=== PATIENT | female | born 1935 | race Caucasian/White ===

== ENCOUNTER 2023-07-25 11:06 | Inpatient (IN) | payer MEDICARE, BC ==
[2023-07-25 11:12] LABS: Glucose,Whole Blood 184 mg/dL (70-110)
--- NOTE | 2023-07-25 11:19 | ED ---
General Adult HPI - General Chief complaint: Neuro Symptoms/Deficit Stated complaint: Stroke Time Seen by Provider: 07/25/23 11:11 Source: patient, RN notes reviewed Mode of arrival: EMS Limitations: no limitations - History of Present Illness Initial comments: Patient is a pleasant 87-year-old female presenting to the emergency department with concern for speech problems. Patient woke at 5 AM and felt everything was normal. Patient noticed symptoms around 6:30 AM. Daughter called her and was concerned and recommended she come to the hospital. Patient admits to having some problems with speech and some drooling on the right side as well as the right side of her face feeling a little bit funny. No history of similar symptoms previously. Last known well 6:30 AM. - Related Data Allergies Allergy/AdvReac Type Severity Reaction Status Date / Time lomefloxacin [From [facility]] Allergy Anaphylaxis Verified 07/25/23 11:22 Penicillins AdvReac Unknown Verified 07/25/23 11:21 Childhood Sulfa (Sulfonamide AdvReac Unknown Verified 07/25/23 11:22 Antibiotics) Childhood Review of Systems ROS Statement: Those systems with pertinent positive or pertinent negative responses have been documented in the HPI. ROS Other: All systems not noted in ROS Statement are negative. Constitutional: Denies: fever Eyes: Denies: eye pain ENT: Denies: ear pain Respiratory: Denies: cough, dyspnea Cardiovascular: Denies: chest pain Endocrine: Denies: fatigue Gastrointestinal: Denies: abdominal pain Neurological: Reports: as per HPI. Denies: headache General Exam Limitations: no limitations General appearance: alert, in no apparent distress Head exam: Present: normocephalic Eye exam: Present: normal appearance, PERRL, EOMI ENT exam: Present: normal exam Neck exam: Present: normal inspection Respiratory exam: Present: normal lung sounds bilaterally Cardiovascular Exam: Present: irregular rhythm GI/Abdominal exam: Present: soft. Absent: tenderness Extremities exam: Present: normal inspection Neurological exam: Present: alert Expanded Neurological exam: Present: protecting the airway, other (Mild slurred speech) Patient oriented to: Present: person, place. Absent: time Cranial nerves: EOM's Intact: Normal, Facial Palsy with Forehead Movement: Abn ormal Right (Right facial droop) Sensory exam: Upper Extremity Light Touch: Normal, Lower Extremity Light Touch: Normal Motor strength exam: RUE: 5, LUE: 5, RLE: 5, LLE: 5 Eye Response: (4) open spontaneously Motor Response: (6) obeys commands Verbal Response: (4) confused conversation Psychiatric exam: Present: normal affect, normal mood Skin exam: Present: normal color Course Vital Signs 07/25/23 07/25/23 11:08 12:41 Temperature 97.8 F Pulse Rate 98 77 Respiratory 18 18 Rate Blood Pressure 135/77 128/76 O2 Sat by Pulse 95 97 Oximetry EKG Findings - EKG Results: EKG: interpreted by [facility]EN[facility] (Nonspecific ST-T), normal axis, normal QRS EKG shows: atrial fibrillation Medical Decision Making - Medical Decision Making Last known well greater than 4.5 hours, therefore patient is not a candidate for TNK or tPA. Risks felt to outweigh the benefits. Was pt. sent in by a medical professional or institution (Dr. PA, JETTING MACHINE OPERATOR, urgent care, hospital, or retirement...) When possible be specific @ -No Did you speak to anyone other than the patient for history (EMS, parent, family, police, friend...)? What history was obtained from this source @ -EMS helps provide history including transportation and concerns of family Did you review nursing and triage notes (agree or disagree)? Why? @ -I reviewed and agree with nursing and triage notes Were old charts reviewed (outside hosp., previous admission, EMS record, old EKG, old radiological studies, urgent care reports/EKG's, retirement records)? Report findings @ -No old charts were reviewed Differential Diagnosis (chest pain, altered mental status, abdominal pain women, abdominal pain men, vaginal bleeding, weakness, fever, dyspnea, syncope, hea dache, dizziness, GI bleed, back pain, seizure, CVA, palpatations, mental health, musculoskeletal)? @ -MDM differential EKG interpreted by me (3pts min.). @ -As above X-rays interpreted by me (1pt min.). @ -Chest x-ray shows some mild interstitial change CT interpreted by me (1pt min.). @ -CT brain does not reveal acute intracranial abnormality U/S interpreted by me (1pt. min.). @ -None done What testing was considered but not performed or refused? (CT, X-rays, U/S, labs)? Why? @ -None What meds were considered but not given or refused? Why? @ -None Did you discuss the management of the patient with other professionals (professionals i.e. , PA, JETTING MACHINE OPERATOR, lab, RT, psych nurse, criminal justice social worker, shingle bolt cutter, teacher, aerospace engineer officer armament, medical case manager)? Give summary @ -Case was discussed with Dr. Chao admit covering Dr. Stephens Was smoking cessation discussed for >3mins.? @ -No Was critical care preformed (if so, how long)? @ -31 minutes critical care Were there social determinants of health that impacted care today? How? (Homelessness, low income, unemployed, alcoholism, drug addiction, transportation, low edu. Level, literacy, decrease access to med. care, usp, rehab)? @ -No Was there de-escalation of care discussed even if they declined (Discuss DNR or withdrawal of care, Hospice)? DNR status @ -No What co-morbidities impacted this encounter? (DM, HTN, Smoking, COPD, CAD, Ca ncer, CVA, ARF, Chemo, Hep., AIDS, mental health diagnosis, sleep apnea, morbid obesity)? @ -None Was patient admitted / discharged? Hospital course, mention meds given and route, prescriptions, significant lab abnormalities, going to OR and other pertinent info. @ -Patient reevaluated and unchanged. Patient remains in A-fib. Patient and family are updated on results and plan. Patient will be admitted with cardiac and neuro consults. Admission orders written. Undiagnosed new problem with uncertain prognosis? @ -No Drug Therapy requiring intensive monitoring for toxicity (Heparin, Nitro, Insulin, Cardizem)? @ -Patient will be started on heparin drip for A-fib Were any procedures done? @ -No Diagnosis/symptom? @ -CVA, new onset A-fib Acute, or Chronic, or Acute on Chronic? @ -Acute, acute Uncomplicated (without systemic symptoms) or Complicated (systemic symptoms)? @ -Complicated with atrial fibrillation Side effects of treatment? @ -No Exacerbation, Progression, or Severe Exacerbation? @ -No Poses a threat to life or bodily function? How? (Chest pain, [place], [place], pneumonia, PE, COPD, DKA, ARF, appy, cholecystitis, CVA, Diverticulitis, Homicidal, Suicidal, threat to staff... and all critical care pts) @ -No - Lab Data Result diagrams: 07/25/23 11:20 07/25/23 11:20 Lab Results 07/25/23 07/25/23 07/25/23 Range/Units 11:09 11:20 11:20 WBC 7.1 (3.8-10.6) k/uL RBC 3.97 (3.80-5.40) m/uL Hgb 12.4 (11.4-16.0) gm/dL Hct 37.1 (34.0-46.0) % MCV 93.4 (80.0-100.0) fL MCH 31.3 (25.0-35.0) pg MCHC 33.5 (31.0-37.0) g/dL RDW 13.0 (11.5-15.5) % Plt Count 202 (150-450) k/uL MPV 7.8 Neutrophils % 66 % Lymphocytes % 27 % Monocytes % 4 % Eosinophils % 1 % Basophils % 1 % Neutrophils # 4.6 (1.3-7.7) k/uL Lymphocytes # 1.9 (1.0-4.8) k/uL Monocytes # 0.3 (0-1.0) k/uL Eosinophils # 0.1 (0-0.7) k/uL Basophils # 0.0 (0-0.2) k/uL PT 11.1 (10.0-12.5) sec INR 1.0 (<1.2) APTT 22.7 (22.0-30.0) sec Sodium (137-145) mmol/L Potassium (3.5-5.1) mmol/L Chloride (98-107) mmol/L Carbon Dioxide (22-30) mmol/L Anion Gap mmol/L BUN (7-17) mg/dL Creatinine (0.52-1.04) mg/dL Est GFR (CKD-EPI)AfAm (>60 ml/min/1.73 sqM) Est GFR (CKD-EPI)NonAf (>60 ml/min/1.73 sqM) Glucose (74-99) mg/dL POC Glucose (mg/dL) 184 H (70-110) mg/dL POC Glu Public Information Officer ID Noris Carey Calcium (8.4-10.2) mg/dL Total Bilirubin (0.2-1.3) mg/dL AST (14-36) U/L ALT (4-34) U/L Alkaline Phosphatase (38-126) U/L Creatine Kinase (30-135) U/L Total Protein (6.3-8.2) g/dL Albumin (3.5-5.0) g/dL 07/25/23 Range/Units 11:20 WBC (3.8-10.6) k/uL RBC (3.80-5.40) m/uL Hgb (11.4-16.0) gm/dL Hct (34.0-46.0) % MCV (80.0-100.0) fL MCH (25.0-35.0) pg MCHC (31.0-37.0) g/dL RDW (11.5-15.5) % Plt Count (150-450) k/uL MPV Neutrophils % % Lymphocytes % % Monocytes % % Eosinophils % % Basophils % % Neutrophils # (1.3-7.7) k/uL Lymphocytes # (1.0-4.8) k/uL Monocytes # (0-1.0) k/uL Eosinophils # (0-0.7) k/uL Basophils # (0-0.2) k/uL PT (10.0-12.5) sec INR (<1.2) APTT (22.0-30.0) sec Sodium 141 (137-145) mmol/L Potassium 4.3 (3.5-5.1) mmol/L Chloride 111 H (98-107) mmol/L Carbon Dioxide 16 L (22-30) mmol/L Anion Gap 14 mmol/L BUN 27 H (7-17) mg/dL Creatinine 0.97 (0.52-1.04) mg/dL Est GFR (CKD-EPI)AfAm 61 (>60 ml/min/1.73 sqM) Est GFR (CKD-EPI)NonAf 53 (>60 ml/min/1.73 sqM) Glucose 192 H (74-99) mg/dL POC Glucose (mg/dL) (70-110) mg/dL POC Glu Public Information Officer ID Calcium 10.4 H (8.4-10.2) mg/dL Total Bilirubin 1.5 H (0.2-1.3) mg/dL AST 24 (14-36) U/L ALT 17 (4-34) U/L Alkaline Phosphatase 76 (38-126) U/L Creatine Kinase 50 (30-135) U/L Total Protein 7.6 (6.3-8.2) g/dL Albumin 4.5 (3.5-5.0) g/dL Critical Care Time Critical Care Time: Yes Disposition Clinical Impression: Cerebrovascular accident (CVA), Atrial fibrillation Disposition: ADMITTED IP TO THIS HOSP Is patient prescribed a controlled substance at d/c from ED?: No Referrals: Miri Stephens DO [Primary Care Provider] - 1-2 days Time of Disposition: 13:16
[2023-07-25 11:31] LABS: Basophils % (A) 1 %; Eosinophils # (A) 0.1 k/uL (0-0.7); Eosinophils % (A) 1 %; HCT 37.1 % (34.0-46.0); HGB 12.4 gm/dL (11.4-16.0); Lymphocytes # (A) 1.9 k/uL (1.0-4.8); Lymphocytes % (A) 27 %; MCH 31.3 pg (25.0-35.0); MCHC 33.5 g/dL (31.0-37.0); MCV 93.4 fL (80.0-100.0); Mean Platelet Volume 7.8; Monocytes # (A) 0.3 k/uL (0-1.0); Monocytes % (A) 4 %; Neutrophils # (A) 4.6 k/uL (1.3-7.7); Neutrophils % (A) 66 %; Platelet Count 202 k/uL (150-450); RBC 3.97 m/uL (3.80-5.40); WBC 7.1 k/uL (3.8-10.6)
[2023-07-25 11:41] LABS: ALT 17 U/L (4-34); AST 24 U/L (14-36); African American GFR (CKD) 61 (>60 ml/min/1.73 sqM); Albumin 4.5 g/dL (3.5-5.0); Alkaline Phosphatase 76 U/L (38-126); Anion Gap 14 mmol/L; Blood Urea Nitrogen 27 mg/dL (7-17); Calcium 10.4 mg/dL (8.4-10.2); Carbon Dioxide 16 mmol/L (22-30); Chloride 111 mmol/L (98-107); Creatine Kinase 50 U/L (30-135); Glucose 192 mg/dL (74-99); Non-African American GFR(CKD) 53 (>60 ml/min/1.73 sqM); Potassium 4.3 mmol/L (3.5-5.1); Sodium 141 mmol/L (137-145); Total Bilirubin 1.5 mg/dL (0.2-1.3); Total Protein 7.6 g/dL (6.3-8.2)
[2023-07-25] MEDS: SODIUM CHLORIDE 0.9% 1,000 ML IV STA (11:48)
[2023-07-25 11:49] LABS: Partial Thromboplastin Time 22.7 sec (22.0-30.0); Prothrombin Time 11.1 sec (10.0-12.5)
--- NOTE | 2023-07-25 12:12 | XR ---
EXAMINATION TYPE: XR chest 2V DATE OF EXAM: 07/25/2023 12:04 PM CLINICAL INDICATION:Female, 87 years old with history of altered mental status; H COMPARISON: None TECHNIQUE: XR chest 2V Frontal and lateral views of the chest. FINDINGS: Lungs/Pleura: There is no evidence of pleural effusion, focal consolidation, or pneumothorax. Pulmonary vascularity: Pulmonary vascular congestion. Heart/mediastinum: Cardiomediastinal silhouette is enlarged and stable. Musculoskeletal: No acute osseous pathology. Other findings: None IMPRESSION: Cardiomegaly and mild pulmonary vascular congestion. Correlate with BNP for congestive heart failure.
--- NOTE | 2023-07-25 12:56 | CT ---
EXAMINATION TYPE: CT brain wo con CT DLP: 1533.10 mGycm, Automated exposure control for dose reduction was used. DATE OF EXAM: 07/25/2023 12:39 PM COMPARISON: None. CLINICAL INDICATION:Female, 87 years old with history of Neuro deficit, acute, stroke suspected, Stro ke TECHNIQUE: Brain: Axial CT images of the brain were obtained with coronal and sagittal reformats created and rev iewed. Contrast used: None. Oral contrast used: None. FINDINGS: Brain: Extra-axial spaces: No abnormal extra-axial fluid collections. Ventricular system: Dilatation in proportion to cerebral atrophy. Cerebral parenchyma: Cerebral atrophy. No acute intraparenchymal hemorrhage or mass effect. The lopez -white junction is well differentiated. Scattered hypoattenuating areas are seen within the white mat ter. Cerebellum: Unremarkable. Mass effect: No evidence of midline shift. Intracranial vasculature: unremarkable Soft tissues: Normal. Calvarium/osseous structures: No depressed skull fracture. Paranasal sinuses and mastoid air cells: Mild scattered paranasal sinus disease. Visualized orbits: Orbital contents are intact. IMPRESSION: 1. No acute intracranial process. 2. Nonspecific white matter changes, likely secondary to chronic small vessel ischemic disease.
--- NOTE | 2023-07-25 13:08 | CT ---
EXAMINATION TYPE: CT angio head neck CT DLP: 1533.10 mGycm, Automated exposure control for dose reduction was used. DATE OF EXAM: 07/25/2023 1:00 PM COMPARISON: CT head same day. CLINICAL INDICATION:Female, 87 years old with history of Neuro deficit, acute, stroke suspected; PHH, Stroke TECHNIQUE: Axially acquired helical CT angiogram of the head and neck was obtained with contrast. Axi al images are supplemented with 3D reconstructions and MIP images which were post-processed at an in dependent workstation. NASCET criteria used. Contrast used:65 ml mL of Isovue 300 without and with IV Contrast, Oral contrast used: None. FINDINGS: CTA HEAD: No evidence of acute intracranial hemorrhage, mass effect, or midline shift. The ventricles, sulci, a nd cisterns are unremarkable. The visualized portions of the internal carotid arteries, middle cerebral arteries, anterior cerebral arteries, and posterior cerebral arteries are patent. Atherosclerosis of the intracranial portions o f the carotid arteries. The basilar and vertebral arteries are patent. CTA NECK: Right Carotid System: The common carotid and external carotid arteries are patent. There is less than 50% stenosis at the c arotid bifurcation secondary to calcified/noncalcified plaque. The rest of the internal carotid arter y is patent. Left Carotid System: The common carotid and external carotid arteries are patent. There is less than 25% stenosis at the c arotid bifurcation secondary to calcified/noncalcified plaque. The rest of the internal carotid arter y is patent. Vertebral arteries are patent without evidence hemodynamically significant stenosis. Dominant right v ertebral artery. Is tortuosity of the left vertebral artery which exits the neuroforamen and reenters There is a three-vessel aortic arch. The origins of the great vessels are patent. No evidence of hemo dynamically significant stenosis. Upper thorax: Pulmonary vascular congestion with small bilateral pleural effusions. IMPRESSION: 1. No evidence of dissection of the cervical internal carotid arteries or vertebral arteries. 2. No evidence of intracranial high-grade stenosis or intracranial aneurysm. 3. Atherosclerosis of the carotid bifurcations with 50% stenosis on the right and less than 25% steno sis on the left.
[2023-07-25] MEDS ORDERED: HEPARIN SODIUM 1,000 UN/ML (10ML VL) IV PRN (13:16)
[2023-07-25 13:33] LABS: Magnesium 1.4 mg/dL (1.6-2.3)
[2023-07-25] MEDS: ASPIRIN 325 MG TAB PO STA (13:37)
[2023-07-25] MEDS: HEPARIN SOD,PORK IN 0.45% NACL 25,000 UNIT in 0.45% NACL 1 250ML.BAG IV SCH (13:38)
--- NOTE | 2023-07-25 13:41 | P.HPIM ---
History of Present Illness This is a pleasant 87 years old female who came from home for right facial droop which started yesterday. Also she is complaining of her speech is slow and slurred which is improved currently but not completely resolved Patient denies headache dizziness or any other new complaints other than above. No double vision. Patient denies chest pain or dyspnea or abdominal pain. No change in urine or bowel habits. No urinary complaints No smoking alcohol or illicit drugs Patient is hemodynamically stable Labs reviewed she has unremarkable CBC, BMP other than mildly elevated BUN, liver enzymes unremarkable, INR 1.0 CT of the brain is negative for acute process CTA of the head of neck is negative for acute process like no aneurysm or dissection. Right internal carotid artery stenosis about 50% while left internal carotid artery stenosis 25% Chest x-ray showing cardiomegaly with pulmonary vascular congestion which is mild. EKG showing atrial fibrillation at a rate of [address]-T changes Review of Systems Review of systems CONSTITUTIONAL: No fever, no malaise, no fatigue. HEENT: No recent visual problems or hearing problems. Denied any sore throat. CARDIOVASCULAR: No orthopnea, PND, no palpitations, no syncope. PULMONARY: No shortness of breath, no cough, no hemoptysis. GASTROINTESTINAL: No diarrhea, no nausea, no vomiting, no abdominal pain. Normoactive bowel sounds. NEUROLOGICAL: No headaches, no weakness, no numbness. HEMATOLOGICAL: Denies any bleeding or petechiae. GENITOURINARY: Denies any burning micturition, frequency, or urgency. MUSCULOSKELETAL/RHEUMATOLOGICAL: Denies any joint pain, swelling, or any muscle pain. ENDOCRINE: Denies any polyuria or polydipsia. Medications and Allergies Allergies Allergy/AdvReac Type Severity Reaction Status Date / Time lomefloxacin [From [facility]] Allergy Anaphylaxis Verified 07/25/23 11:22 Penicillins AdvReac Unknown Verified 07/25/23 11:21 Childhood Sulfa (Sulfonamide AdvReac Unknown Verified 07/25/23 11:22 Antibiotics) Childhood Physical Exam Vitals: Vital Signs Temp Pulse Resp BP Pulse Ox 07/25/23 12:41 77 18 128/76 97 07/25/23 11:08 97.8 F 98 18 135/77 95 Intake and Output 07/24/23 07/25/23 07/25/23 22:59 06:59 14:59 Other: Weight 81 kg GENERAL: The patient is alert and oriented x3, not in any acute distress. Well developed, well nourished. HEENT: Pupils are round and equally reacting to light. EOMI. No scleral icterus. No conjunctival pallor. Normocephalic, atraumatic. No pharyngeal erythema. No thyromegaly. CARDIOVASCULAR: S1 and S2 present. No murmurs, rubs, or gallops. PULMONARY: Chest is clear to auscultation, no wheezing , no crackles. ABDOMEN: Soft, nontender, nondistended, normoactive bowel sounds. No palpable organomegaly. MUSCULOSKELETAL: No joint swelling or deformity. EXTREMITIES: No cyanosis, clubbing, or pedal edema. -NEUROLOGICAL: Cranial nerves are grossly intact other than mild left facial deviation and right facial droop. No weakness or numbness. Strength 5/5. Mentation is intact SKIN: No rashes. no petechiae. Results CBC & Chem 7: 07/25/23 11:20 07/25/23 11:20 Labs: Abnormal Lab Results - Last 24 Hours (Table) 07/25/23 07/25/23 07/25/23 Range/Units 11:09 11:20 11:20 Chloride 111 H (98-107) mmol/L Carbon Dioxide 16 L (22-30) mmol/L BUN 27 H (7-17) mg/dL Glucose 192 H (74-99) mg/dL POC Glucose (mg/dL) 184 H (70-110) mg/dL Calcium 10.4 H (8.4-10.2) mg/dL Magnesium 1.4 L (1.6-2.3) mg/dL Total Bilirubin 1.5 H (0.2-1.3) mg/dL Assessment and Plan Assessment: Acute stroke is suspected with no slurred speech and right facial droop New onset A-fib with rate controlled Right internal carotid artery stenosis 50% Obesity with BMI of 32.7 Plan: Continue with heparin drip started in the emergency room Continue with aspirin 325 mg Neurology consult Cardiology consult Also will consult vascular surgery team for her right internal carotid artery stenosis Labs and medication were reviewed.. Continue same treatment. Continue with symptomatic treatment. Resume home medication. Monitor labs and vitals. DVT and GI prophylaxis. Further recommendations as per clinical course of the patient DVT prophylaxis: Subcutaneous heparin GI Prophylaxis: Pepcid PT/OT: Pending Prognosis is guarded
[2023-07-25 13:51] LABS: T4, Free (Free Thyroxine) 1.83 ng/dL (0.78-2.19)
[2023-07-25] MEDS: SODIUM CHLORIDE 0.9% 1,000 ML IV SCH (14:04)
[2023-07-25 17:29] LABS: Glucose,Whole Blood 152 mg/dL (70-110)
[2023-07-25 21:31] LABS: Glucose,Whole Blood 149 mg/dL (70-110)
[2023-07-26] MEDS ORDERED: DEXTROSE 50% SYRINGE 50 ML IVP PRN ×2 (07:13)
[2023-07-26 07:58] LABS: Glucose,Whole Blood 97 mg/dL (70-110)
[2023-07-26] MEDS: INSULIN ASPART (NovoLOG) 100 UNIT/ML VIAL SQ SCH (07:58)
[2023-07-26 08:01] LABS: Basophils % (A) 0 %; Eosinophils # (A) 0.2 k/uL (0-0.7); Eosinophils % (A) 2 %; HCT 35.2 % (34.0-46.0); HGB 11.8 gm/dL (11.4-16.0); Lymphocytes # (A) 2.1 k/uL (1.0-4.8); Lymphocytes % (A) 24 %; MCHC 33.5 g/dL (31.0-37.0); MCV 92.7 fL (80.0-100.0); Mean Platelet Volume 7.8; Monocytes # (A) 0.3 k/uL (0-1.0); Monocytes % (A) 4 %; Neutrophils # (A) 5.9 k/uL (1.3-7.7); Neutrophils % (A) 68 %; Platelet Count 210 k/uL (150-450); WBC 8.6 k/uL (3.8-10.6)
[2023-07-26 08:09] LABS: INR 1.1 (<1.2)
[2023-07-26] MEDS: APIXABAN 5 MG TAB PO SCH (08:59)
[2023-07-26] MEDS: METOPROLOL TARTRATE 50 MG TAB PO SCH (08:59)
[2023-07-26] MEDS: PRAVASTATIN SODIUM 40 MG TAB PO SCH (08:59)
[2023-07-26] MEDS: ASPIRIN 81 MG PO SCH (08:59)
[2023-07-26] MEDS: FAMOTIDINE 20 MG/2 ML VIAL IV SCH (09:00)
[2023-07-26] MEDS ORDERED: ASPIRIN 325 MG TAB PO SCH (09:00)
[2023-07-26 09:09] VITALS: RESP 18
--- NOTE | 2023-07-26 10:13 | P.PN ---
Subjective This is a pleasant 87 years old female who came from home for right facial droop which started yesterday. Also she is complaining of her speech is slow and slurred which is improved currently but not completely resolved Patient denies headache dizziness or any other new complaints other than above. No double vision. Patient denies chest pain or dyspnea or abdominal pain. No change in urine or bowel habits. No urinary complaints No smoking alcohol or illicit drugs Patient is hemodynamically stable Labs reviewed she has unremarkable CBC, BMP other than mildly elevated BUN, liver enzymes unremarkable, INR 1.0 CT of the brain is negative for acute process CTA of the head of neck is negative for acute process like no aneurysm or dissection. Right internal carotid artery stenosis about 50% while left internal carotid artery stenosis 25% Chest x-ray showing cardiomegaly with pulmonary vascular congestion which is mild. EKG showing atrial fibrillation at a rate of [address]-T changes 07/26/2023 Patient sitting in bed, mentation at baseline. She reports improvement in her slurred speech but not quite back to normal yet She still have some right facial droop but the left facial deviation also improved significantly. She denies any other new neurological deficit no new weakness or numbness. No other new complaints. No chest pain or dyspnea. She is hemodynamically stable. CBC is unremarkable today B12 and TSH are still pending Echocardiogram and carotid Dopplers still pending Patient evaluated by cardiology team Anticoagulation was switched for her A-fib and to Eliquis and aspirin dose lowered from 325 mg at home down to 81 mg currently Review of systems CONSTITUTIONAL: No fever, no malaise, no fatigue. HEENT: No recent visual problems or hearing problems. Denied any sore throat. CARDIOVASCULAR: No orthopnea, PND, no palpitations, no syncope. PULMONARY: No shortness of breath, no cough, no hemoptysis. GASTROINTESTINAL: No diarrhea, no nausea, no vomiting, no abdominal pain. Normoactive bowel sounds. NEUROLOGICAL: No headaches, no weakness, no numbness. Active Medications Generic Name Dose Route Start Last Admin Trade Name Freq PRN Reason Stop Dose Admin Apixaban 5 mg 07/26/23 09:00 07/26/23 08:59 Apixaban 5 Mg Tab PO 5 mg BID PAULA Administration Protocol Aspirin 81 mg 07/26/23 09:00 07/26/23 08:59 Aspirin 81 Mg PO 81 mg DAILY PAULA Administration Dextrose/Water 25 ml 03/04/24 07:13 Dextrose 50% Syringe 50 Ml IVP PER PROTOCOL PRN Hypoglycemia Protocol Dextrose/Water 50 ml 07/26/23 07:13 Dextrose 50% Syringe 50 Ml IVP PER PROTOCOL PRN Hypoglycemia Protocol Famotidine 20 mg 07/26/23 09:00 07/26/23 09:00 Famotidine 20 Mg/2 Ml Vial IV 20 mg DAILY PAULA Administration Insulin Aspart 0 unit 07/26/23 07:30 07/26/23 07:58 Insulin Aspart (Novolog) 100 Unit/Ml Vial SQ Not Given ACHS PAULA Protocol Metoprolol Tartrate 50 mg 07/26/23 09:00 07/26/23 08:59 Metoprolol Tartrate 50 Mg Tab PO 50 mg BID PAULA Administration Pravastatin Sodium 40 mg 07/26/23 09:00 07/26/23 08:59 Pravastatin Sodium 40 Mg Tab PO 40 mg DAILY PAULA Administration Objective - Vital Signs Vital signs: Vital Signs Temp 98.5 F 07/26/23 00:00 Pulse 91 07/26/23 08:57 Resp 18 07/26/23 08:57 BP 146/72 07/26/23 08:57 Pulse Ox 95 07/26/23 08:57 FiO2 Intake & Output 07/25/23 07/26/23 07/26/23 18:59 06:59 18:59 Weight 81 kg Other: Voiding Method Bedpan Diaper Incontinent External Catheter # Voids 4 - Exam GENERAL: The patient is alert and oriented x3, not in any acute distress. Well developed, well nourished. HEENT: Pupils are round and equally reacting to light. EOMI. No scleral icterus. No conjunctival pallor. Normocephalic, atraumatic. No pharyngeal erythema. No thyromegaly. CARDIOVASCULAR: S1 and S2 present. No murmurs, rubs, or gallops. PULMONARY: Chest is clear to auscultation, no wheezing , no crackles. ABDOMEN: Soft, nontender, nondistended, normoactive bowel sounds. No palpable organomegaly. MUSCULOSKELETAL: No joint swelling or deformity. EXTREMITIES: No cyanosis, clubbing, or pedal edema. NEUROLOGICAL: Gross neurological examination did not reveal any focal deficits. SKIN: No rashes. no petechiae. - Labs CBC & Chem 7: 07/26/23 07:21 07/25/23 11:20 Labs: Abnormal Lab Results - Last 24 Hours (Table) 07/25/23 07/25/23 07/25/23 Range/Units 11:09 11:20 11:20 APTT (22.0-30.0) sec Chloride 111 H (98-107) mmol/L Carbon Dioxide 16 L (22-30) mmol/L BUN 27 H (7-17) mg/dL Glucose 192 H (74-99) mg/dL POC Glucose (mg/dL) 184 H (70-110) mg/dL Calcium 10.4 H (8.4-10.2) mg/dL Magnesium 1.4 L (1.6-2.3) mg/dL Total Bilirubin 1.5 H (0.2-1.3) mg/dL 07/25/23 07/25/23 07/25/23 Range/Units 17:27 20:50 21:27 APTT 54.4 H (22.0-30.0) sec Chloride (98-107) mmol/L Carbon Dioxide (22-30) mmol/L BUN (7-17) mg/dL Glucose (74-99) mg/dL POC Glucose (mg/dL) 152 H 149 H (70-110) mg/dL Calcium (8.4-10.2) mg/dL Magnesium (1.6-2.3) mg/dL Total Bilirubin (0.2-1.3) mg/dL Assessment and Plan Assessment: Acute stroke is suspected with no slurred speech and right facial droop New onset A-fib with rate controlled Right internal carotid artery stenosis 50% Obesity with BMI of 32.7 Plan: Continue with Eliquis and to figure out the co-pay Continue with aspirin 325 mg, but lower dose to 81 mg by cellar hand Neurology consult Cardiology consult Also will consult vascular surgery team for her right internal carotid artery stenosis Labs and medication were reviewed.. Continue same treatment. Continue with symptomatic treatment. Resume home medication. Monitor labs and vitals. DVT and GI prophylaxis. Further recommendations as per clinical course of the p atient DVT prophylaxis: Subcutaneous heparin GI Prophylaxis: Pepcid PT/OT: Pending Prognosis is guarded
--- NOTE | 2023-07-26 11:29 | P.GSCN ---
History of Present Illness Consult date: 07/26/23 Reason for Consult: Right internal carotid artery stenosis Requesting physician: Thong E Sheet History of present illness: This is a pleasant 87-year-old female who was brought in yesterday for concerns for strokelike symptoms. Apparently patient had slurred speech for quite some time, right-sided facial drooping and she reports left facial tingling. She was admitted for stroke workup as well as noted to be an new onset atrial fibrillation. She is currently on heparin drip. She states symptoms have resolved and speech has been clear. She denies any other focal deficits. Patient does appear to still have slight right mouth droop. She states that she never had any weakness in her upper or lower extremities. No visual changes. She denies previous history of stroke. She has a past medical history including hypertension, diabetes, and hyperlipidemia. Patient's last well-known was greater than 4 hours prior to arriving to the emergency department so she was not a candidate for tPA. She was admitted for CVA workup. She had a CT of the brain with no acute findings, nonspecific white matter changes secondary to small vessel ischemic disease. She also underwent CT angiogram of the head and neck with no's significant stenosis bilaterally. Right ICA reported near 50%. Vascular surgery was consulted for right ICA stenosis. Currently patient denies any shortness of breath, chest pain, abdominal pain, nausea or vomiting. No difficulty with speech, she is alert and oriented x 3. She still has slight facial droop on the right otherwise strength and tone are normal. Review of Systems A 14 point review systems was completed all pertinent positives and negatives as stated in the HPI. Medications and Allergies Home Medications Medication Instructions Recorded Confirmed Type Aspirin EC [Ecotrin Low Dose] 81 mg PO DAILY 07/25/23 07/25/23 History Glimepiride [Amaryl] 2 mg PO AC-BID 07/25/23 07/25/23 History Losartan Potassium 100 mg PO DAILY 07/25/23 07/25/23 History Metoprolol Tartrate [Lopressor] 50 mg PO BID 07/25/23 07/25/23 History Pravastatin Sodium [Pravachol] 40 mg PO DAILY 07/25/23 07/25/23 History amLODIPine [Norvasc] 10 mg PO DAILY 07/25/23 07/25/23 History metFORMIN HCL 500 mg PO BID 07/25/23 07/25/23 History Apixaban [Eliquis] 5 mg PO BID #60 tab 07/26/23 Rx Allergies Allergy/AdvReac Type Severity Reaction Status Date / Time lomefloxacin [From [facility]] Allergy Severe Anaphylaxis Verified 07/25/23 14:10 doxycycline Allergy Unknown Verified 07/25/23 14:10 olmesartan Allergy Unknown Verified 07/25/23 14:10 Penicillins Allergy Unknown Verified 07/25/23 14:10 Childhood primidone Allergy Unknown Verified 07/25/23 14:10 Sulfa (Sulfonamide Allergy Unknown Verified 07/25/23 14:10 Antibiotics) Childhood steroids Allergy rash/itchin Uncoded 07/25/23 14:10 g Surgical - Exam Vital Signs Temp Pulse Resp BP Pulse Ox 97.8 F 98 18 135/77 95 07/25/23 11:08 07/25/23 11:08 07/25/23 11:08 07/25/23 11:08 07/25/23 11:08 General appearance: The patient is alert, oriented, appears in no acute distress. HET: Head is normocephalic and atraumatic. Pupils are equal and reactive. Patient has a slight droop in the right side of her mouth. Neck: Supple. Heart: Regular. Lungs: Equal expansion, normal respiratory effort. Abdomen: Soft, nontender, nondistended. Extremities: Normal skin color and turgor. Palpable bilateral radial and DP pulses. Neurological: Right facial droop. No other focal deficits noted. Strength and sensation are grossly intact. Results - Labs 07/26/23 07:21 07/25/23 11:20 Abnormal Lab Results - Last 24 Hours (Table) 07/25/23 07/25/23 07/25/23 Range/Units 11:09 11:20 11:20 APTT (22.0-30.0) sec Chloride 111 H (98-107) mmol/L Carbon Dioxide 16 L (22-30) mmol/L BUN 27 H (7-17) mg/dL Glucose 192 H (74-99) mg/dL POC Glucose (mg/dL) 184 H (70-110) mg/dL Calcium 10.4 H (8.4-10.2) mg/dL Magnesium 1.4 L (1.6-2.3) mg/dL Total Bilirubin 1.5 H (0.2-1.3) mg/dL 07/25/23 07/25/23 07/25/23 Range/Units 17:27 20:50 21:27 APTT 54.4 H (22.0-30.0) sec Chloride (98-107) mmol/L Carbon Dioxide (22-30) mmol/L BUN (7-17) mg/dL Glucose (74-99) mg/dL POC Glucose (mg/dL) 152 H 149 H (70-110) mg/dL Calcium (8.4-10.2) mg/dL Magnesium (1.6-2.3) mg/dL Total Bilirubin (0.2-1.3) mg/dL Diabetes panel 07/25/23 Range/Units 11:20 Sodium 141 (137-145) mmol/L Potassium 4.3 (3.5-5.1) mmol/L Chloride 111 H (98-107) mmol/L Carbon Dioxide 16 L (22-30) mmol/L BUN 27 H (7-17) mg/dL Creatinine 0.97 (0.52-1.04) mg/dL Glucose 192 H (74-99) mg/dL Calcium 10.4 H (8.4-10.2) mg/dL AST 24 (14-36) U/L ALT 17 (4-34) U/L Alkaline Phosphatase 76 (38-126) U/L Total Protein 7.6 (6.3-8.2) g/dL Albumin 4.5 (3.5-5.0) g/dL Thyroid panel 07/25/23 Range/Units 11:20 TSH 3.520 (0.465-4.680) mIU/L Calcium panel 07/25/23 Range/Units 11:20 Calcium 10.4 H (8.4-10.2) mg/dL Albumin 4.5 (3.5-5.0) g/dL Pituitary panel 07/25/23 07/25/23 Range/Units 11:20 11:20 Sodium 141 (137-145) mmol/L Potassium 4.3 (3.5-5.1) mmol/L Chloride 111 H (98-107) mmol/L Carbon Dioxide 16 L (22-30) mmol/L BUN 27 H (7-17) mg/dL Creatinine 0.97 (0.52-1.04) mg/dL Glucose 192 H (74-99) mg/dL Calcium 10.4 H (8.4-10.2) mg/dL TSH 3.520 (0.465-4.680) mIU/L Adrenal panel 07/25/23 Range/Units 11:20 Sodium 141 (137-145) mmol/L Potassium 4.3 (3.5-5.1) mmol/L Chloride 111 H (98-107) mmol/L Carbon Dioxide 16 L (22-30) mmol/L BUN 27 H (7-17) mg/dL Creatinine 0.97 (0.52-1.04) mg/dL Glucose 192 H (74-99) mg/dL Calcium 10.4 H (8.4-10.2) mg/dL Total Bilirubin 1.5 H (0.2-1.3) mg/dL AST 24 (14-36) U/L ALT 17 (4-34) U/L Alkaline Phosphatase 76 (38-126) U/L Total Protein 7.6 (6.3-8.2) g/dL Albumin 4.5 (3.5-5.0) g/dL - Imaging Comments: Brain CT: No acute intracranial process. Nonspecific white matter changes, likely secondary to chronic small vessel ischemic disease CT angiogram head and neck: No evidence of dissection of the cervical internal carotid arteries or vertebral arteries. No evidence of intracranial high-grade stenosis or intracranial aneurysm. Arthrosclerosis of the carotid bifurcations with 50% stenosis on the right and less than 25% stenosis on the left. Assessment and Plan Assessment: 1. Asymptomatic right ICA stenosis approximately 50% 2. Expressive aphasia, now resolved and right facial droop, likely TIA/CVA 3. New onset atrial fibrillation 4. Diabetes mellitus 5. Hypertension 6. Hyperlipidemia Plan: 1. Carotid duplex ordered 2. Continue with recommendations from cardiology for atrial fibrillation 3. Continue with recommendations and workup from neurology 4. Further recommendations forthcoming per vascular surgery Thank you for this consultation, we will continue to follow. The impression and plan of care has been dictated as directed. I performed a history and examination of this patient, discussed the same with the dictator. I agree with the dictator's note ,documented as a scribe. Any additional findings or plans will be noted.
[2023-07-26 11:34] LABS: Chol/HDL Ratio 2.26 Ratio; LDL Cholesterol,Calculated 39.3 mg/dL (0.0-131.0); VLDL Calculation 17.04 mg/dL (5.00-40.00)
[2023-07-26 12:18] LABS: Glucose,Whole Blood 121 mg/dL (70-110)
--- NOTE | 2023-07-26 13:34 | P.CRDCN ---
History of Present Illness History of present illness: HISTORY OF PRESENT ILLNESS: This is a 87-year-old female with a past medical history significant for hypertension and diabetes. 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 We have been asked to see the patient in consultation for atrial fibrillation. Patient examined at the bedside in the emergency room. Patient presented to the hospital secondary to right-sided facial droop and difficulty talking. She states her symptoms have since improved. Patient was found to be in atrial fibrillation upon arrival to the hospital. Patient denies a history of atrial fibrillation. Bedside telemetry reveals atrial fibrillation with a heart [place] [id number]. She was started on IV heparin. She is currently receiving metoprolol tartrate 50 mg twice a day. Patient currently denies chest pain or pressure. She denies shortness of breath. Blood pressure stable with a recent reading of 145/83. DIAGNOSTICS: - EKG reveals atrial fibrillation with nonspecific ST-T wave changes. - Chest xray cardiomegaly and mild pulmonary vascular congestion. - Laboratory data: WBC 8.6. Hemoglobin 11.8. Platelet count 210. Sodium 141. Potassium 4.3. BUN 27. Creatinine 0.97. Magnesium 1.4. - Current home cardiac medications include aspirin 81 mg daily, losartan 100 mg daily, Pravachol 40 mg daily, metoprolol titrate 50 mg twice a day, and amlodipine 10 mg daily. - CT brain: Negative for acute process - CT angio: 50% right-sided carotid stenosis and less than 25% carotid stenosis on the left -No previous echocardiogram or cardiac catheterization available in EMR for review REVIEW OF SYSTEMS: At the time of my exam: CONSTITUTIONAL: Denies fever or chills. HEENT: Denies blurred vision, vision changes, or eye pain. Denies hemoptysis CARDIOVASCULAR: Denies chest pain. Denies orthopnea. Denies PND. Denies palpitations RESPIRATORY: Denies shortness of breath. GASTROINTESTINAL: Denies abdominal pain. Denies nausea or vomiting. HEMATOLOGIC: Denies bleeding disorders. GENITOURINARY: Denies any blood in urine. SKIN: Denies pruitis. Denies rash. PHYSICAL EXAM: VITAL SIGNS: Reviewed. GENERAL: Well-developed in no acute distress. HEENT: Head is normocephalic. Pupils are equal, round. Sclerae anicteric. Mucous membranes of the mouth are moist. Neck supple. No JVD or thyromegaly LUNGS: Respirations even and unlabored. Lungs essentially clear to auscultation bilaterally. HEART: Irregular rate and rhythm. S1 and S2 heard. ABDOMEN: Soft. Nondistended. Nontender. EXTREMITIES: Normal range of motion. No clubbing or cyanosis. Peripheral pulses intact. No lower extremity edema NEUROLOGIC: Awake and alert. Oriented x 3. ASSESSMENT: Expressive aphasia and right-sided facial droop, suspect ischemic CVA/TIA New onset atrial fibrillation with RVR, currently rate controlled Hypertension Hyperlipidemia Diabetes Bilateral carotid stenosis, 50% right, 25% left PLAN: Obtain 2D echo to assess cardiac structure and function Discontinue IV heparin. Begin Eliquis 5 mg twice a day Check TSH Continue current dose of metoprolol 50 mg twice a day Continue telemetry monitoring Further recommendations pending patient course Nurse practitioner note has been reviewed by physician. Signing provider agrees with the documented findings, assessment, and plan of care documented by [facility] as a scribe. Medications and Allergies Home Medications Medication Instructions Recorded Confirmed Type Aspirin EC [Ecotrin Low Dose] 81 mg PO DAILY 07/25/23 07/25/23 History Glimepiride [Amaryl] 2 mg PO AC-BID 07/25/23 07/25/23 History Losartan Potassium 100 mg PO DAILY 07/25/23 07/25/23 History Metoprolol Tartrate [Lopressor] 50 mg PO BID 07/25/23 07/25/23 History Pravastatin Sodium [Pravachol] 40 mg PO DAILY 07/25/23 07/25/23 History amLODIPine [Norvasc] 10 mg PO DAILY 07/25/23 07/25/23 History metFORMIN HCL 500 mg PO BID 07/25/23 07/25/23 History Apixaban [Eliquis] 5 mg PO BID #60 tab 07/26/23 Rx Allergies Allergy/AdvReac Type Severity Reaction Status Date / Time lomefloxacin [From [facility]] Allergy Severe Anaphylaxis Verified 07/25/23 14:10 doxycycline Allergy Unknown Verified 07/25/23 14:10 olmesartan Allergy Unknown Verified 07/25/23 14:10 Penicillins Allergy Unknown Verified 07/25/23 14:10 Childhood primidone Allergy Unknown Verified 07/25/23 14:10 Sulfa (Sulfonamide Allergy Unknown Verified 07/25/23 14:10 Antibiotics) Childhood steroids Allergy rash/itchin Uncoded 07/25/23 14:10 g Physical Exam Vitals: Vital Signs Temp Pulse Pulse Pulse Resp BP BP 07/26/23 04:00 93 20 140/74 07/26/23 02:00 76 78 20 07/26/23 00:00 98.5 F 78 20 144/86 07/25/23 20:00 98.3 F 76 76 20 144/84 07/25/23 18:14 98 F 94 20 146/97 07/25/23 17:02 87 20 129/57 07/25/23 13:56 86 18 139/74 07/25/23 12:41 77 18 128/76 07/25/23 11:08 97.8 F 98 18 135/77 Pulse Ox 07/26/23 04:00 100 07/26/23 02:00 07/26/23 00:00 92 L 07/25/23 20:00 93 L 07/25/23 18:14 94 L 07/25/23 17:02 94 L 07/25/23 13:56 94 L 07/25/23 12:41 97 07/25/23 11:08 95 Intake and Output 07/25/23 07/26/23 07/26/23 22:59 06:59 14:59 Other: Voiding Method Bedpan Bedpan Diaper Diaper Incontinent Incontinent External Catheter # Voids 4 Results 07/26/23 07:21 07/25/23 11:20 Cardiac Enzymes 07/25/23 Range/Units 11:20 AST 24 (14-36) U/L Coagulation 07/25/23 07/25/23 07/26/23 Range/Units 11:20 20:50 07:03 PT 11.1 12.0 (10.0-12.5) sec APTT 22.7 54.4 H (22.0-30.0) sec CBC 07/25/23 07/26/23 Range/Units 11:20 07:21 WBC 7.1 8.6 (3.8-10.6) k/uL RBC 3.97 3.80 (3.80-5.40) m/uL Hgb 12.4 11.8 (11.4-16.0) gm/dL Hct 37.1 35.2 (34.0-46.0) % Plt Count 202 210 (150-450) k/uL Comprehensive Metabolic Panel 03/03/24 Range/Units 11:20 Sodium 141 (137-145) mmol/L Potassium 4.3 (3.5-5.1) mmol/L Chloride 111 H (98-107) mmol/L Carbon Dioxide 16 L (22-30) mmol/L BUN 27 H (7-17) mg/dL Creatinine 0.97 (0.52-1.04) mg/dL Glucose 192 H (74-99) mg/dL Calcium 10.4 H (8.4-10.2) mg/dL AST 24 (14-36) U/L ALT 17 (4-34) U/L Alkaline Phosphatase 76 (38-126) U/L Total Protein 7.6 (6.3-8.2) g/dL Albumin 4.5 (3.5-5.0) g/dL Current Medications Generic Name Dose Route Start Last Admin Trade Name Freq PRN Reason Stop Dose Admin Aspirin 325 mg 07/26/23 09:00 Aspirin 325 Mg Tab PO DAILY PAULA Dextrose/Water 25 ml 07/26/23 07:13 Dextrose 50% Syringe 50 Ml IVP PER PROTOCOL PRN Hypoglycemia Protocol Dextrose/Water 50 ml 07/26/23 07:13 Dextrose 50% Syringe 50 Ml IVP PER PROTOCOL PRN Hypoglycemia Protocol Famotidine 20 mg 07/26/23 09:00 Famotidine 20 Mg/2 Ml Vial IV DAILY [facility] Heparin Sodium (Porcine) 0 unit 07/25/23 13:16 Heparin Sodium 1,000 Un/Ml (10ml Vl) IV PER PROTOCOL PRN Low PTT Protocol Heparin Sodium/Sodium Chloride 250 mls @ 9.72 mls/hr 07/25/23 13:30 07/25/23 13:38 25,000 unit/ Sodium Chloride IV 12 units/kg/hr .Q24H PAULA 9.72 mls/hr Administration Protocol 12 UNITS/KG/HR Insulin Aspart 0 unit 07/26/23 07:30 07/26/23 07:58 Insulin Aspart (Novolog) 100 Unit/Ml Vial SQ Not Given ACHS [facility] Protocol Metoprolol Tartrate 50 mg 07/26/23 09:00 Metoprolol Tartrate 50 Mg Tab PO BID PAULA Pravastatin Sodium 40 mg 07/26/23 09:00 Pravastatin Sodium 40 Mg Tab PO DAILY PAULA Intake and Output 07/25/23 07/26/23 07/26/23 22:59 06:59 14:59 Other: Voiding Method Bedpan Bedpan Diaper Diaper Incontinent Incontinent External Catheter # Voids 4 07/26/23 07:21 07/25/23 11:20
--- NOTE | 2023-07-26 14:52 | US ---
EXAMINATION TYPE: US carotid duplex BILAT DATE OF EXAM: 07/26/2023 COMPARISON: NONE CLINICAL INDICATION: Female, 87 years old with history of TIA, slurred speech; TECHNIQUE: Carotid duplex ultrasound examination. Indirect Doppler criteria was utilized. FINDINGS: EXAM MEASUREMENTS: RIGHT: Peak Systolic Velocity (PSV) cm/sec ----- Right CCA: 49.0 ----- Right ICA: 87.0 ----- Right ECA: 95.5 ICA/CCA ratio: 1.8 RIGHT: End Diastole cm/sec ----- Right CCA: 6.6 ----- Right ICA: 18.4 ----- Right ECA: 2.5 LEFT: Peak Systolic Velocity (PSV) cm/sec ----- Left CCA: 91.6 ----- Left ICA: 116.0 ----- Left ECA: 93.5 ICA/CCA ratio: 1.3 LEFT: End Diastole cm/sec ----- Left CCA: 19.5 ----- Left ICA: 22.7 ----- Left ECA: 3.9 VERTEBRALS (direction of flow): Right Vertebral: Antegrade Left Vertebral: Antegrade Rhythm: Arrhythmia Mild atherosclerotic change at the bilateral carotid bifurcations. IMPRESSION: 1. No hemodynamically significant internal carotid artery stenosis on either side. 2. The paste thinner indicates an aberrant cardiac rhythm during the scan. Clinically correlate. Criteria for Assigning % of Stenosis / Diameter reduction (Estimation based on the indirect measurements of the internal carotid artery velocities (ICA PSV). 1. Normal (no stenosis)=ICA PSV < 125 cm/s: ratio < 2.0: ICA EDV<40 cm/s. 2. Less than 50% stenosis=ICA PSV < 125 cm/s: ratio < 2.0: ICA EDV<40 cm/s. 3. 50 to 69% stenosis=ICA PSV of 125 to 230 cm/s: ration 2.0 ? 4.0: ICA EDV 40-100 cm/s. 4. Greater than 70% stenosis to near occlusion= ICA PSV > 230 cm/s: ratio > 4.0: ICA EDV > 100 cm/s. 5. Near occlusion= ICA PSV velocities may be low or undetectable: variable ratio and ICA EDV. 6. Total occlusion=unable to detect flow.
--- NOTE | 2023-07-26 15:39 | P.CNNES ---
History of Present Illness Consult date: 07/26/23 Requesting physician: David Chaudhry Reason for Consult: CVA History of Present Illness: Patient is a 87-year-old left-handed female came to the hospital by ambulance yesterday at 11:06 AM for strokelike symptoms. Patient states that she does not sleep well. She woke up yesterday at 6 AM and was feeling fine. She went back to sleep. At around 8:30 AM she noticed right facial droop, slurred speech. She called her granddaughter at 10 AM and she noticed significant slurring of her speech and it was very hard to understand. Patient herself told her that she felt she was having a stroke. There was no associated focal numbness, tingling, weakness, visual disturbance. Patient's son was also present at this time, who mentions that the night prior she was acting slightly weird, did not know what they were talking about and was not able to comprehend well. Patient's granddaughter called EMS. As per EMS flowsheet, when they arrived, patient had abnormal speech. Patient was alert and oriented x 3, breathing nonlabored, appeared to be in minimal distress. Patient had right-sided facial droop and was drooling from the right side of her mouth and was having some slurred speech. Patient mentioned that she woke up around 5 AM and felt fine but around 630 she started to notice her right side of the face felt off. Patient has history of hypertension and diabetes. Patient is on blood thinners, denies any falls. Her blood glucose was 180. Patient was able to walk without any assistance. Patient was placed in the stretcher. Patient denied any head, neck, back or chest or abdominal pain or difficulty breathing. No headache or dizziness or blurred vision or nausea vomiting. Patient's vitals at the scene was blood pressure 167/91, pulse rate 76 respirations 16,'s saturation 94%. Patient's blood test shows normal CBC, PT PTT, electrolytes are normal, BUN 27, creatinine 0.97. Hepatic panel is normal, TSH is normal. CK normal. Lipid panel with cholesterol 101, LDL 39, HDL 44, triglycerides 85. CT head revealed no acute intracranial process. Nonspecific white matter changes, likely seconda ry to chronic small vessel ischemic disease. EKG shows atrial fibrillation. Chest x-ray with cardiomegaly and mild pulmonary vascular congestion. Correlate with BNP for congestive heart failure. Patient's granddaughter believes that she is remarkably improved as compared to yesterday about 90 to 95% back to baseline. She has very minimal residual right facial asymmetry. Patient has history of hypertension and diabetes. She has never smoked, does not drink alcohol. No previous history of strokes or TIA. Patient has history of right shoulder rotator cuff surgery and also has issues with the left shoulder. She has history of back surgery 2-1/2 years ago. Patient at home takes aspirin 81 mg, losartan 100 mg, metoprolol, amlodipine, glimepiride, pravastatin 40 mg and metformin. Patient lives with her son. She does not use any assistive device. She does have a cane and a walker, which she has received after her back surgery, but does not use at this time. Review of Systems Constitutional: Denies chills, Denies fever Eyes: denies blurred vision, denies diplopia, denies pain Ears: deny: decreased hearing, ear discharge Ears, nose, mouth and throat: Denies headache, Denies sore throat, Denies vertigo Cardiovascular: Denies chest pain, Denies lightheadedness, Denies shortness of breath Respiratory: Reports cough, Reports excessive sputum Gastrointestinal: Denies abdominal pain, Denies diarrhea, Denies nausea, Denies vomiting Genitourinary: Reports mixed incontinence, Denies dysuria, Denies hematuria Musculoskeletal: Denies low back pain, Denies myalgias, Denies neck pain Integumentary: Denies pruritus, Denies rash Neurological: Reports as per HPI Psychiatric: Denies anxiety, Denies depression Hematologic/Lymphatic: Reports easy bruising, Denies easy bleeding Medications and Allergies Home Medications Medication Instructions Recorded Confirmed Type Aspirin EC [Ecotrin Low Dose] 81 mg PO DAILY 07/25/23 07/25/23 History Glimepiride [Amaryl] 2 mg PO AC-BID 07/25/23 07/25/23 History Losartan Potassium 100 mg PO DAILY 07/25/23 07/25/23 History Metoprolol Tartrate [Lopressor] 50 mg PO BID 07/25/23 07/25/23 History Pravastatin Sodium [Pravachol] 40 mg PO DAILY 07/25/23 07/25/23 History amLODIPine [Norvasc] 10 mg PO DAILY 07/25/23 07/25/23 History metFORMIN HCL 500 mg PO BID 07/25/23 07/25/23 History Apixaban [Eliquis] 5 mg PO BID #60 tab 07/26/23 Rx Allergies Allergy/AdvReac Type Severity Reaction Status Date / Time lomefloxacin [From [facility]] Allergy Severe Anaphylaxis Verified 07/25/23 14:10 doxycycline Allergy Unknown Verified 07/25/23 14:10 olmesartan Allergy Unknown Verified 07/25/23 14:10 Penicillins Allergy Unknown Verified 07/25/23 14:10 Childhood primidone Allergy Unknown Verified 07/25/23 14:10 Sulfa (Sulfonamide Allergy Unknown Verified 07/25/23 14:10 Antibiotics) Childhood steroids Allergy rash/itchin Uncoded 07/25/23 14:10 g Physical Examination - Vital Signs Vital Signs: Vital Signs Temp Pulse Pulse Pulse Resp BP BP 07/26/23 12:10 67 18 145/83 07/26/23 08:57 91 18 146/72 07/26/23 04:00 93 20 140/74 07/26/23 02:00 76 78 20 07/26/23 00:00 98.5 F 78 20 144/86 07/25/23 20:00 98.3 F 76 76 20 144/84 07/25/23 18:14 98 F 94 20 146/97 07/25/23 17:02 87 20 129/57 Pulse Ox 07/26/23 12:10 98 07/26/23 08:57 95 07/26/23 04:00 100 07/26/23 02:00 07/26/23 00:00 92 L 07/25/23 20:00 93 L 07/25/23 18:14 94 L 07/25/23 17:02 94 L Intake and Output 07/25/23 07/26/23 07/26/23 22:59 06:59 14:59 Other: Voiding Method Bedpan Bedpan Diaper Diaper Incontinent Incontinent External Catheter # Voids 4 Patient is an elderly female, very pleasant, in no acute distress. Patient is alert awake oriented to time place and person. Speech and language functions are normal. Patient can name and repeat very well. No aphasia or dysarthria. Attention, concentration and fund of knowledge is adequate. On cranial nerve examination, pupils are equal, round and reacting to light, visual pearce are full on confrontation, with no neglect on double simultaneous stimulation. Extraocular muscles are intact with no nystagmus. Patient has mild flattening of the right nasolabial fold with slight right facial asymmetry. Her tongue protrudes to the midline. Palatal elevation and sensation normal, hearing and shoulder shrug normal, facial sensation normal. On muscle strength testing, there is right-sided pronation but no drift. Her muscle strength is normal in arms and legs distally and proximally. Deep tendon reflexes are symmetric 2 in the upper limbs at biceps and triceps, trace in the lower limbs and plantars are withdrawal bilaterally. Sensory to touch is equal with no neglect on double simultaneous stimulation. Cerebellar function showed no ataxia for [id number] testing, although she was tremulous bilaterally. No dysdiadochokinesia. No ataxia for [id number] testing on either side. Tone and bulk of muscles normal. Gait deferred.. On general examination, there is no carotid bruit or murmur, S1-S2 audible. Chest is clear on consultation. Abdomen is soft nontender. No organomegaly, bowel sounds present. Peripheral pulses are present. No peripheral edema. Results - Laboratory Findings CBC and BMP: 07/26/23 07:21 07/25/23 11:20 Abnormal Lab Findings: Abnormal Labs 07/25/23 07/25/23 07/25/23 11:09 11:20 11:20 APTT Chloride 111 H Carbon Dioxide 16 L BUN 27 H Glucose 192 H POC Glucose (mg/dL) 184 H Calcium 10.4 H Magnesium 1.4 L Total Bilirubin 1.5 H 07/25/23 07/25/23 07/25/23 17:27 20:50 21:27 APTT 54.4 H Chloride Carbon Dioxide BUN Glucose POC Glucose (mg/dL) 152 H 149 H Calcium Magnesium Total Bilirubin 07/26/23 12:16 APTT Chloride Carbon Dioxide BUN Glucose POC Glucose (mg/dL) 121 H Calcium Magnesium Total Bilirubin Assessment and Plan Assessment: * Possible stroke/TIA manifesting with slurred speech and right facial droop. Her symptoms have about 95 to 98% resolved as per patient's granddaughter. Her current NIH stroke scale is 2 related to minimal right facial asymmetry and right-sided pronation. Patient not a candidate for tPA because of unknown duration of symptoms. * New onset atrial fibrillation * Right ICA stenosis, around 50% per CTA. No stenosis on the left ICA. * Hypertension * Diabetes * Hyperlipidemia * History of back surgery Plan: Patient probably has a small stroke versus TIA. She is doing very well. Her symptoms have about 95 to 98% resolved. No indication for MRI, as it will not change the management. Patient started on Eliquis 5 mg twice daily for stroke prevention related to atrial fibrillation. Patient also on aspirin 81 mg per vascular surgery for mild to moderate right ICA stenosis. 2-D echo with bubble study to rule out PFO CTA head and neck showed: No evidence of dissection of the cervical internal carotid arteries or vertebral arteries. No evidence of intracranial high-grade stenosis or intracranial aneurysm. Atherosclerosis of the carotid bifurcations with 50% stenosis on the right and less than 25% stenosis on the left. Carotid Doppler revealed no hemodynamically significant stenosis. Antegrade flow in both vertebral arteries. Fasting a.m. lipid panel with cholesterol 101, LDL 39, HDL 44, triglycerides 85. Continue pravastatin 40 mg. Hemoglobin A1c Optimize control of blood pressure. Neurochecks every 4 hours. Telemetry monitoring rule out any arrhythmia PT, OT, speech therapy DVT prophylaxis: Patient on Eliquis. Neurologically clear for discharge in a.m., if she remains stable overnight. Thank you for the consult.
[2023-07-26 16:52] LABS: Glucose,Whole Blood 117 mg/dL (70-110)
--- NOTE | 2023-07-26 18:56 | CA ---
Transthoracic Echo Report Name: Xiomara Lai Age: 87 Gender: F : 1935 Exam Date: 07/26/2023 09:31 Exam Location: [facility] Ht (in): 62 Wt (lb): 178 Ordering Physician: David Chaudhry DO Attending/Referring Phys: Spot Machine Operator Luz Chin RDCS Procedure CPT: Indications: Thrombus Cardiac Hx: Technical Quality: Contrast 1: Total Dose (mL): Contrast 2: Total Dose (mL): MEASUREMENTS (Male / Female) Normal Values 2D ECHO LV Diastolic Diameter PLAX 4.5 cm 4.2 - 5.9 / 3.9 - 5.3 cm LV Systolic Diameter PLAX 3.2 cm IVS Diastolic Thickness 1.0 cm 0.6 - 1.0 / 0.6 - 0.9 cm LVPW Diastolic Thickness 0.7 cm 0.6 - 1.0 / 0.6 - 0.9 cm LV Relative Wall Thickness 0.4 LVOT Diameter 1.8 cm Aortic Root Diameter 3.2 cm LA Systolic Diameter LX 4.6 cm 3.0 - 4.0 / 2.7 - 3.8 cm DOPPLER AV Peak Velocity 108.3 cm/s AV Peak Gradient 4.7 mmHg AV Mean Velocity 68.7 cm/s AV Mean Gradient 2.1 mmHg AV Velocity Time Integral 19.7 cm LVOT Peak Velocity 95.3 cm/s LVOT Peak Gradient 3.6 mmHg LVOT Velocity Time Integral 18.5 cm LVOT Stroke Volume 46.3 cm??? LVOT Stroke Volume Index 25.4 ml/m??? LVOT Cardiac Index 1694.1 cm???/min???m??? AV Area Cont Eq vti 2.4 cm??? AV Area Cont Eq pk 2.2 cm??? Mitral E Point Velocity 124.1 cm/s Mitral A Point Velocity 34.1 cm/s Mitral E to A Ratio 3.6 MV Deceleration Time 161.6 ms MV E' Velocity 10.5 cm/s Mitral E to MV E' Ratio 11.8 TR Peak Velocity 260.6 cm/s TR Peak Gradient 27.2 mmHg Right Ventricular Systolic Press 37.2 mmHg PV Peak Velocity 88.3 cm/s PV Peak Gradient 3.1 mmHg FINDINGS Left Ventricle Left ventricular ejection fraction is estimated at 55-60 %. Mild concentric left ventricular hypertrophy. No obvious regional wall motion abnormalities. Right Ventricle Right ventricular systolic pressure estimated at 41mmhg. Right Atrium Moderate right atrial dilatation. Left Atrium Moderately increased left atrial diameter. Mitral Valve Mild mitral regurgitation. Aortic Valve Trileaflet aortic valve. Tricuspid Valve [id number] tricuspid regurgitation. Pulmonic Valve Mild pulmonic regurgitation. Pericardium No pericardial effusion. Aorta Normal size aortic root. CONCLUSIONS Normal LV function Dilated right atrium Dilated left atrium Mild mitral regurgitation Previewed by: Dr. Marcelo Powell MD (Electronically Signed) Final Date: 26 July 2023 18:56
[2023-07-26 22:16] LABS: Glucose,Whole Blood 202 mg/dL (70-110)
[2023-07-27 06:09] LABS: Glucose,Whole Blood 112 mg/dL (70-110)
--- NOTE | 2023-07-27 09:07 | P.PN ---
Subjective Progress Note Date: 07/27/23 Principal diagnosis: Acute stroke Patient seen and examined today as a follow-up for acute stroke. She had initially presented to the emergency department with complaints of expressive aphasia, right facial droop and left facial numbness and tingling. CT brain showed no acute findings. CTA head and neck reported approximately 50% right ICA stenosis, less than 25% on the left. She had a carotid duplex shows no hemodynamically significant stenosis. She has been started on Eliquis 5 mg twice daily for new onset atrial fibrillation and is on 81 mg of aspirin daily. She denies any new focal deficits. No complaints of chest pain, shortness of breath, abdominal pain, nausea or vomiting. Bilateral upper and lower extremities with normal strength and tone. No difficulty swallowing. Right facial droop has significantly improved, almost to 100%. Objective - Vital Signs Vital signs: Vital Signs Temp 98.4 F 07/26/23 17:46 Pulse 76 07/27/23 02:00 Resp 18 07/27/23 02:00 BP 153/89 07/26/23 17:46 Pulse Ox 99 07/26/23 17:46 FiO2 Intake & Output 07/26/23 07/27/23 07/27/23 18:59 06:59 18:59 Output Total 450 Balance -450 Weight 81 kg Output: Urine 450 Other: Voiding Method Bedpan Diaper Incontinent External Catheter # Voids 2 # Bowel Movements 1 - Exam General appearance: The patient is alert, oriented, appears in no acute distress. HET: Head is normocephalic and atraumatic. Pupils are equal and reactive. Neck: Supple. Heart: Irregular. Lungs: Equal expansion, normal respiratory effort. Abdomen: Soft, nontender, nondistended. Extremities: Normal skin color and turgor. Neurological: No focal deficits. Strength and sensation are grossly intact. - Labs CBC & Chem 7: 07/26/23 07:21 07/25/23 11:20 Labs: Abnormal Lab Results - Last 24 Hours (Table) 07/26/23 07/26/23 07/26/23 Range/Units 12:16 16:50 22:13 POC Glucose (mg/dL) 121 H 117 H 202 H (70-110) mg/dL 07/27/23 Range/Units 06:08 POC Glucose (mg/dL) 112 H (70-110) mg/dL Assessment and Plan Assessment: 1. Asymptomatic right ICA stenosis approximately 50% per CTA, hemodynamically significant stenosis bilaterally per carotid duplex 2. Expressive aphasia, now resolved and right facial droop, likely TIA/CVA 3. New onset atrial fibrillation 4. Diabetes mellitus 5. Hypertension 6. Hyperlipidemia Plan: 1. Carotid duplex ordered and reviewed, no hemodynamically significant stenosis noted 2. Continue with recommendations from cardiology for atrial fibrillation 3. Continue with recommendations and workup from neurology 4. Continue Eliquis as ordered per cardiology, aspirin 81 mg daily, Pravachol 40 mg daily 5. There is no indication for any vascular surgical intervention. Discussed with patient to follow-up for outpatient surveillance. Thank you for this consultation, patient is cleared from vascular surgery for d ischarge. The impression and plan of care has been dictated as directed. I performed a history and examination of this patient, discussed the same with the dictator. I agree with the dictator's note ,documented as a scribe. Any additional findings or plans will be noted.
[2023-07-27 09:47] LABS: African American GFR (CKD) 82 (>60 ml/min/1.73 sqM); Anion Gap 12 mmol/L; Blood Urea Nitrogen 14 mg/dL (7-17); Calcium 9.9 mg/dL (8.4-10.2); Carbon Dioxide 19 mmol/L (22-30); Chloride 110 mmol/L (98-107); Glucose 156 mg/dL (74-99); Non-African American GFR(CKD) 71 (>60 ml/min/1.73 sqM); Potassium 3.7 mmol/L (3.5-5.1); Sodium 141 mmol/L (137-145)
[2023-07-27 11:36] LABS: Glucose,Whole Blood 185 mg/dL (70-110)
--- NOTE | 2023-07-27 12:09 | P.PN ---
Subjective HISTORY OF PRESENT ILLNESS: This is a 87-year-old female with a past medical history significant for hypertension and diabetes. Patient follows with a hand packer/packager out of [place]. We have been asked to see the patient in consultation for atrial fibrillation. Patient examined at the bedside in the emergency room. Patient presented to the hospital secondary to right-sided facial droop and difficulty talking. She states her symptoms have since improved. Patient was found to be in atrial fibrillation upon arrival to the hospital. Patient denies a history of atrial fibrillation. Bedside telemetry reveals atrial fibrillation with a heart rate between [id number]. She was started on IV heparin. She is currently receiving metoprolol tartrate 50 mg twice a day. Patient currently denies chest pain or pressure. She denies shortness of breath. Blood pressure stable with a recent reading of 145/83. DIAGNOSTICS: - EKG reveals atrial fibrillation with nonspecific ST-T wave changes. - Chest xray cardiomegaly and mild pulmonary vascular congestion. - Laboratory data: WBC 8.6. Hemoglobin 11.8. Platelet count 210. Sodium 141. Potassium 4.3. BUN 27. Creatinine 0.97. Magnesium 1.4. - Current home cardiac medications include aspirin 81 mg daily, losartan 100 mg daily, Pravachol 40 mg daily, metoprolol titrate 50 mg twice a day, and amlodipine 10 mg daily. - CT brain: Negative for acute process - CT angio: 50% right-sided carotid stenosis and less than 25% carotid stenosis on the left -No previous echocardiogram or cardiac catheterization available in EMR for review 07/27/2023 Patient examined this morning at the bedside. Patient denies chest pain or pressure. She denies shortness of breath. Patient's facial droop has resolved. Telemetry reveals atrial fibrillation with heart rate in the 70s. Echocardiogram completed revealing ejection fraction 55 to 60%. TSH normal at 3.520. PHYSICAL EXAM: VITAL SIGNS: Reviewed. GENERAL: Well-developed in no acute distress. HEENT: Head is normocephalic. Pupils are equal, round. Sclerae anicteric. Mucous membranes of the mouth are moist. Neck supple. No JVD or thyromegaly LUNGS: Respirations even and unlabored. Lungs essentially clear to auscultation bilaterally. HEART: Irregular rate and rhythm. S1 and S2 heard. ABDOMEN: Soft. Nondistended. Nontender. EXTREMITIES: Normal range of motion. No clubbing or cyanosis. Peripheral pulses intact. No lower extremity edema NEUROLOGIC: Awake and alert. Oriented x 3. ASSESSMENT: Expressive aphasia and right-sided facial droop, suspect ischemic CVA/TIA New onset atrial fibrillation with RVR, currently rate controlled Hypertension Hyperlipidemia Diabetes Bilateral carotid stenosis, 50% right, 25% left PLAN: Continue current cardiac medications Patient is currently stable from a cardiac standpoint with no further inpatient recommendations We will sign off. Please reconsult if needed. Nurse practitioner note has been reviewed by physician. Signing provider agrees with the documented findings, assessment, and plan of care documented by GREENHOUSE FLORIST as a scribe. Objective - Vital Signs Vital signs: Vital Signs Temp 98.3 F 07/27/23 08:30 Pulse 89 07/27/23 08:30 Resp 18 07/27/23 08:30 BP 138/76 07/27/23 08:30 Pulse Ox 97 07/27/23 08:30 FiO2 Intake & Output 07/26/23 07/27/23 07/27/23 18:59 06:59 18:59 Output Total 450 Balance -450 Weight 81 kg Output: Urine 450 Other: Voiding Method Bedpan Diaper Incontinent External Catheter # Voids 2 # Bowel Movements 1 - Labs CBC & Chem 7: 07/26/23 07:21 07/27/23 08:55 Labs: Abnormal Lab Results - Last 24 Hours (Table) 07/26/23 07/26/23 07/26/23 Range/Units 12:16 16:50 22:13 Chloride (98-107) mmol/L Carbon Dioxide (22-30) mmol/L Glucose (74-99) mg/dL POC Glucose (mg/dL) 121 H 117 H 202 H (70-110) mg/dL 07/27/23 07/27/23 07/27/23 Range/Units 06:08 08:55 11:31 Chloride 110 H (98-107) mmol/L Carbon Dioxide 19 L (22-30) mmol/L Glucose 156 H (74-99) mg/dL POC Glucose (mg/dL) 112 H 185 H (70-110) mg/dL
[2023-07-27 13:52] VITALS: BP 147/81; PULSE 83; TEMP 98.4
--- NOTE | 2023-07-28 05:45 | P.DS ---
Providers Date of admission: 07/25/23 13:17 Attending physician: Thong Cheung MD Consults: 07/25/23 13:17 Consult Physician Urgent Consulting Provider: Peña Box Consult Reason/Comments: cva Do you want consulting provider notified?: Yes 07/25/23 13:40 Consult Physician Routine Consulting Provider: Suly Epperson Consult Reason/Comments: Right internal carotid artery stenosis Do you want consulting provider notified?: Yes Primary care physician: Miri Bose Hospital Course: Diagnoses: Acute stroke is suspected with new slurred speech and right facial droop, significantly improved upon discharge New onset A-fib with rate controlled Right internal carotid artery stenosis 50% Obesity with BMI of 32.7 Hospital course: This is a pleasant 87 years old female who came from home for right facial droop which started yesterday. Also she is complaining of her speech is slow and slurred which is improved currently but not completely resolved. Patient also found to have new onset A. fib with rate controlled. Patient tolerated by neurologist and shopper insights manager and she was started on anticoagulation with Eliquis, risk of bleeding explained for the patient extensively including risk of bleeding. She verbalized understanding and acceptance. We checked her coronary and is covered by insurance per staff. Patient's symptoms significantly improved. Patient denies chest pain dyspnea. No other new complaints. Patient agrees to go home today. Patient was cleared for discharge by cardiology and neurology services. Patient will be discharged on Eliquis, while continued on her home dose of aspirin 81 mg. Problems and management plan were discussed with the patient and he verbalized understanding and acceptance Patient was found stable and can be discharged home in guarded prognosis however he needs follow-up as an outpatient. Patient was instructed to follow up with PCP Dr. Bose within one week and patient agrees Patient was instructed to follow-up with the neurologist Dr. Aly in 2 weeks, shopper insights manager Dr. Sanz in 1-2 weeks and vascular surgeon Dr. bonner in 2-3 weeks and she verbalized understanding and acceptance Physical exam Gen: patient is a AAOx3, no distress CVS: S1-S2, RRR, no murmur Lungs: B/L CTA, no wheezing Abdomen: soft, no distention, no tenderness, positive bowel sounds Extremity: no leg edema or induration Neuro: Cranial nerves are grossly intact. Motor 5/5. Sensation intact Time spent more than 35 minutes Plan - Discharge Summary Discharge Rx Participant: No New Discharge Prescriptions: New Apixaban [Eliquis] 5 mg PO BID #60 tab Cyanocobalamin [Vitamin B-12] 500 mcg PO DAILY 21 Days #21 tablet Continue metFORMIN HCL 500 mg PO BID Pravastatin Sodium [Pravachol] 40 mg PO DAILY Glimepiride [Amaryl] 2 mg PO AC-BID Metoprolol Tartrate [Lopressor] 50 mg PO BID Losartan Potassium 100 mg PO DAILY Aspirin EC [Ecotrin Low Dose] 81 mg PO DAILY Discontinued amLODIPine [Norvasc] 10 mg PO DAILY Discharge Medication List Aspirin EC [Ecotrin Low Dose] 81 mg PO DAILY 07/25/23 [History] Glimepiride [Amaryl] 2 mg PO AC-BID 07/25/23 [History] Losartan Potassium 100 mg PO DAILY 07/25/23 [History] Metoprolol Tartrate [Lopressor] 50 mg PO BID 07/25/23 [History] Pravastatin Sodium [Pravachol] 40 mg PO DAILY 07/25/23 [History] metFORMIN HCL 500 mg PO BID 07/25/23 [History] Apixaban [Eliquis] 5 mg PO BID #60 tab 07/26/23 [Rx] Cyanocobalamin [Vitamin B-12] 500 mcg PO DAILY 21 Days #21 tablet 07/27/23 [Rx] Follow up Appointment(s)/Referral(s): Lyle Farah MD [Medical Doctor] - 08/04/23 1:45 pm (shopper insights manager) Julio Cesar Bonner DO [STAFF PHYSICIAN] - 08/24/23 9:30 am (Established in office as new patient for carotid surveillance) Miri Bose DO [Primary Care Provider] - 1-2 days (please call to schedule an appointment) Julian Aly MD [Medical Doctor] - 2 Weeks (Neurologist, call to schedule an appointment. ) Patient Instructions/Handouts: A-fib (Atrial Fibrillation) (DC), Ischemic Stroke (DC) Activity/Diet/Wound Care/Special Instructions: Heart healthy diet Activity is restricted till you see your doctor we recommend to check vitamin B12 with your doctor In 1 month Discharge Disposition: HOME WITH HOME HEALTH SERVICES
== END 2023-07-27 15:38 | disposition home health service (06) | DRG 66 ==
LOC: EC 11:06 → 3SCARD 13:17
PROVIDERS: ADMIT Internal Medicine; ATTEND Internal Medicine
DX: I63.9 Cerebral infarction, unspecified (principal); R47.01 Aphasia; E66.9 Obesity, unspecified; E78.5 Hyperlipidemia, unspecified; F10.20 Alcohol dependence, uncomplicated; I48.91 Unspecified atrial fibrillation; I11.0 Hypertensive heart disease with heart failure; I65.23 Occlusion and stenosis of bilateral carotid arteries; I25.10 Atherosclerotic heart disease of native coronary artery without angina pectoris; R47.81 Slurred speech; R29.810 Facial weakness; Z79.01 Long term (current) use of anticoagulants; Z68.32 Body mass index [BMI] 32.0-32.9, adult; R29.702 NIHSS score 2; Z79.82 Long term (current) use of aspirin; Z79.84 Long term (current) use of oral hypoglycemic drugs; Z79.899 Other long term (current) drug therapy; I50.9 Heart failure, unspecified; I08.3 Combined rheumatic disorders of mitral, aortic and tricuspid valves; Z86.73 Personal history of transient ischemic attack (TIA), and cerebral infarction without residual deficits; Z88.8 Allergy status to other drugs, medicaments and biological substances; Z88.1 Allergy status to other antibiotic agents; Z88.0 Allergy status to penicillin; Z88.2 Allergy status to sulfonamides; Z88.6 Allergy status to analgesic agent
CPT/HCPCS: 36415; 70450; 70496; 70498; 71046; 80048; 80053; 80061; 82550; 82607; 83036; 83735; 84439; 84443; 84481; 85025; 85610; 85730; 93005; 93306; 93880; 96361; 96365; 96366; 96375; 99291